=== PATIENT | male | born 1940 | race Caucasian/White ===

== ENCOUNTER 2016-09-07 10:01 | Outpatient (CLI) | payer MEDICARE | END 2016-09-07 10:02 | disposition home or self-care (01) | DX: R22.1 Localized swelling, mass and lump, neck (principal) ==

== ENCOUNTER 2016-09-18 11:10 | Outpatient (CLI) | payer MEDICARE ==
[2016-09-18] MEDS ORDERED: IOPAMIDOL-300 100 ML VIAL IVP ONE (12:03)
--- NOTE | 2016-09-18 16:56 | CT Report ---
CT NECK WITH CONTRAST: 09/18/2016 CLINICAL INDICATION: Palpable abnormality left side. COMPARISON: Ultrasound 09/07/2016. TECHNIQUE: Axial CT images of the neck were obtained 100 mL Isovue-300 intravenously. FINDINGS: The vascular structures enhance normally. There is an air-fluid level in the right maxill radha sinus and patchy mucosal thickening, compatible with acute on chronic sinus disease. The palpabl e abnormality marked with a BB correlates with a homogeneously enhancing nodule arising adjacent to t he inferior aspect of the left parotid gland. This lesion measures 2.2 x 1.2 x 1.2 cm. Additionally , there is a mildly enlarged left submandibular lymph node, measuring 1.3 x 0.9 cm. No definite naso pharyngeal, oropharyngeal, or hypopharyngeal mucosal lesion is identified. The trachea is widely pat ent. Limited evaluation of the lung apices demonstrates emphysema. Osseous structures demonstrate d egenerative changes. IMPRESSION: RELATIVELY HOMOGENEOUS NODULE ARISING IN THE INFERIOR RIGHT PAROTID GLAND, LIKELY REPRES ENTING AN INTRAPAROTID LYMPH NODE. CONSIDER FINE NEEDLE ASPIRATION FOR FURTHER EVALUATION. ALSO, TX LDLY ENLARGED RIGHT SUBMANDIBULAR NODE. In accordance with CT protocol optimization, one or more of the following dose reduction techniques w ere utilized for this exam: automated exposure control, adjustment of mA and/or KV based on patient size, or use of iterative reconstructive technique. JOB #: [id number] EXT JOB #:[id number]
== END 2016-09-18 11:11 | disposition home or self-care (01) ==
LOC: DI 11:10
PROVIDERS: ATTEND Family Medicine
DX: R22.1 Localized swelling, mass and lump, neck (principal); R59.0 Localized enlarged lymph nodes
CPT/HCPCS: 70491; Q9967

== ENCOUNTER 2017-02-15 10:09 | Outpatient (CLI) | payer MEDICARE ==
--- NOTE | 2017-02-15 12:37 | XRAY Report ---
THREE-VIEW RIGHT KNEE: 02/15/2017 CLINICAL INDICATION: Twisted, pain. FINDINGS: AP, lateral, sunrise views of the right knee demonstrate moderate osteoarthritis. A small effusion is present. There is no evidence of acute fracture or dislocation. IMPRESSION: MODERATE OSTEOARTHRITIS, WITH A SMALL EFFUSION. JOB #: [id number] EXT JOB #:[id number]
--- NOTE | 2017-02-15 12:38 | XRAY Report ---
THREE VIEW LEFT FOOT: 02/15/2017 CLINICAL INDICATION: Pain. FINDINGS: AP, lateral, and oblique views of the left foot demonstrate osteoarthritis of the interpha langeal joints. There is no evidence of acute fracture or dislocation. No radiopaque foreign body is seen in the soft tissues. IMPRESSION: MILD OSTEOARTHRITIS. JOB #: [id number] EXT JOB #:[id number]
== END 2017-02-15 10:10 | disposition home or self-care (01) ==
LOC: DI.S 10:09
PROVIDERS: ATTEND Family Medicine
DX: M19.072 Primary osteoarthritis, left ankle and foot (principal); M17.11 Unilateral primary osteoarthritis, right knee; M25.461 Effusion, right knee

== ENCOUNTER 2017-03-05 13:10 | Outpatient (CLI) | payer MEDICARE ==
--- NOTE | 2017-03-05 18:29 | MRI Report ---
EXAM: RIGHT KNEE MRI WITHOUT CONTRAST EXAM DATE: 03/05/2017 01:57 PM. CLINICAL HISTORY: Twisting knee injury months ago, persistent effusion. COMPARISON: Plain x-ray of the knee from 02/15/2017. TECHNIQUE: Multiplanar, multisequence T1-weighted and fluid-sensitive sequences of the knee without c ontrast. Other: None. FINDINGS: Bones: Marrow edema is seen on both sides of the medial compartment. Marginal osteophytosis is seen a t the medial compartment, lateral compartment and the patellofemoral joint. Articular Cartilage: Broad areas of grade 34 chondromalacia on both sides of the medial compartment. Lateral compartment is relatively spared. There is a cartilaginous fissure at the patellar apex. Medial Meniscus: Medial meniscus is partially subluxed out of the joint and there is maceration of th e posterior horn which may also involve the posterior medial meniscal root. Please see series 801 ramana ge 12, series 901 image 24. Lateral Meniscus: The lateral meniscus is intact. Cruciate Ligaments: The anterior and posterior cruciate ligaments are intact. Collateral Ligaments: MCL is bowed medially and somewhat thickened, probably from previous strain or partial-thickness tearing. LCL complex appears intact. Tendons: The quadriceps, patellar, semimembranosus, and popliteus tendons are unremarkable. Musculature: No edema or fatty atrophy. Other: Small effusion. No popliteal cyst. Focal loose body seen in the posterior knee joint immediate ly posterior to the distal PCL, measuring up to 10 mm on series 501 image 15. The medial and lateral retinacula are intact. The subcutaneous tissues and fat pads are unremarkable. IMPRESSION: 1. Marrow edema on both sides of the medial compartment, associated with broad areas of grade 4 chond romalacia. Lateral compartment is relatively spared. Cartilaginous fissure at the patellar apex. Liana inal osteophytosis in all 3 joint compartments. 2. Medial meniscus is partially subluxed out of the joint and there is maceration of the posterior ho rn. There also is probably involvement of the posterior medial meniscal root. Lateral meniscus, cruci ates appear unremarkable. 3. MCL is bowed medially and somewhat thickened, probably from previous injury. No acute injury of th e MCL. LCL is normal. 4. Small joint effusion. There is a 10 mm loose body in the posterior knee joint, immediately posteri or to the distal PCL. [facility] MUSCULOSKELETAL RADIOLOGY SECTION Referring Provider Line: [phone] SITE ID: [id number]
== END 2017-03-05 13:11 | disposition home or self-care (01) ==
LOC: DI 13:10
PROVIDERS: ATTEND Family Medicine
DX: S83.91XA Sprain of unspecified site of right knee, initial encounter (principal); M25.561 Pain in right knee; M25.461 Effusion, right knee; M94.261 Chondromalacia, right knee

== ENCOUNTER 2018-05-22 12:23 | Outpatient (CLI) | payer MEDICARE, OTHER | END 2018-05-22 12:24 | disposition home or self-care (01) | LOC: RT 12:23 | PROVIDERS: ATTEND Internal Medicine Cardiovascular Disease | DX: I25.10 Atherosclerotic heart disease of native coronary artery without angina pectoris (principal) | CPT/HCPCS: 93005 ==

== ENCOUNTER 2018-05-27 08:02 | Outpatient (CLI) | payer MEDICARE, OTHER ==
[2018-05-27 14:20] LABS: ALBUMIN 3.8 g/dL (3.2-5.5); ALBUMIN/GLOBULIN RATIO 1.3 (1.0-2.2); ALKALINE PHOSPHATASE 57 IU/L (42-121); ALT ALANINE AMINOTRANSFERASE 19 IU/L (10-60); AST ASPARTATE AMINOTRANSFERASE 31 IU/L (10-42); BILIRUBIN,TOTAL 0.7 mg/dL (0.2-1.0); BUN - BLOOD UREA NITROGEN 15 mg/dL (6-20); CALCIUM 8.8 mg/dL (8.5-10.3); CARBON DIOXIDE - CO2 28 mmol/L (21-32); CHLORIDE 102 mmol/L (101-111); CHOL/HDL RATIO 2.8 (<5.0); CHOLESTEROL 220 mg/dL; CREATININE 0.7 mg/dL (0.6-1.2); GFR - MDRD 109 (>89); GLUCOSE 96 mg/dL (70-100); HDL CHOLESTEROL 80 mg/dL; LDL CHOLESTEROL,CALCULATED 129 mg/dL; LDL/HDL RATIO 1.6 (<3.6); SODIUM 136 mmol/L (135-145); TOTAL PROTEIN 6.7 g/dL (6.7-8.2); VLDL CHOLESTEROL 11 mg/dL
[2018-05-27 14:53] LABS: THYROID STIMULATING HORMONE 1.73 uIU/mL (0.34-5.60)
[2018-05-27 14:57] LABS: FREE T4 (FREE THYROXINE) 1.03 ng/dL (0.58-1.64)
== END 2018-05-27 08:03 | disposition home or self-care (01) ==
LOC: LAB.F 08:02
PROVIDERS: ATTEND Internal Medicine Cardiovascular Disease
DX: I25.10 Atherosclerotic heart disease of native coronary artery without angina pectoris (principal); I51.7 Cardiomegaly; E78.49 Other hyperlipidemia; I10 Essential (primary) hypertension; R09.89 Other specified symptoms and signs involving the circulatory and respiratory systems
CPT/HCPCS: 36415; 80051; 80053; 80061; 83721; 84439; 84443

== ENCOUNTER 2018-06-02 10:19 | Outpatient (CLI) | payer MEDICARE, OTHER ==
--- NOTE | 2018-06-02 13:10 | Ultrasound Report ---
Reason: CAROTID BRUIT L Procedure Date: 06/02/2018 Accession Number: [id number] / [id number] Procedure: US - Carotid Doppler Complete CPT Code: FULL RESULT: EXAM: BILATERAL CAROTID AND VERTEBRAL ARTERY DUPLEX DOPPLER ULTRASOUND: EXAM DATE: 06/02/2018 12:44 PM CLINICAL HISTORY: Carotid bruit left. COMPARISON: None. TECHNIQUE: Grayscale imaging, color Doppler, and duplex spectral Doppler were used to evaluate the carotid and vertebral arteries bilaterally. Static images were obtained. FINDINGS: There is a scant amount of echogenic atherosclerotic plaque in the right common carotid artery focally at multiple sites with a mixture of hypoechoic and echogenic plaque in the right carotid bulb region, subjectively less than 50%. The right proximal internal carotid artery similarly demonstrates segmental atherosclerotic plaque which usually does not exceed 50% of the lumen. More extensive echogenic atherosclerotic plaque is seen in the left carotid bulb region which also extends to the proximal left internal carotid artery, less than 50%. Normal antegrade flow is present in bilateral vertebral arteries. VELOCITIES (cm/sec): Right CCA Mid: PSV 81.2 cm/sec CCA Dist: PSV 51.5 cm/sec ICA Prox: PSV 77.3 cm/sec, EDV 15.1 cm/sec ICA Mid: PSV 72.8 cm/sec, EDV 26.9 cm/sec ICA Dist: PSV 90.7 cm/sec, EDV 30.8 cm/sec ECA: PSV 85.7 cm/sec Vert: PSV 41.5 cm/sec ICA/CCA: 1.1 Left CCA Mid: PSV 72.8 cm/sec CCA Dist: PSV 61.6 cm/sec ICA Prox: PSV 59.4 cm/sec, EDV 20.7 cm/sec ICA Mid: PSV 66.1 cm/sec, EDV 25.2 cm/sec ICA Dist: PSV 65.5 cm/sec, EDV 24.1 cm/sec ECA: PSV 77.3 cm/sec Vert: PSV 51.5 cm/sec ICA/CCA: 0.9 ICA diameter stenosis: Right: <50% by velocity and <70% by NASCET criteria. Left: <50% by velocity and <70% by NASCET criteria. IMPRESSION: 1. Echogenic focal atherosclerosis of the left greater than right carotid bulbs, visually less than 50% carotid artery plaquing. 2. In the right carotid artery there are no elevated carotid artery velocities to suggest hemodynamically significant stenosis. 3. In the left carotid artery there are no elevated carotid artery velocities to suggest hemodynamically significant stenosis. 4. Normal antegrade flow is present in bilateral vertebral arteries. General Recommendations: Stenosis =50% ICA - Follow-up ultrasound 6-12 months Stenosis <50% ICA - High Risk Patient with plaque - Follow-up ultrasound 1-2 years Normal Study but High Risk Patient - Follow-up ultrasound 3-5 years Management recommendations and diagnostic criteria are based on current IAC endorsed standards in Carotid Artery Stenosis: Grayscale and Doppler Ultrasound Diagnosis. Validated velocity measurements with angiographic measurements and velocity criteria are extrapolated from diameter data as defined by the Society of Radiologists in Ultrasound Consensus Conference Radiology 2003; 229;340-346. [facility]
== END 2018-06-02 10:20 | disposition home or self-care (01) ==
LOC: DI 10:19
PROVIDERS: ATTEND Internal Medicine Cardiovascular Disease
DX: I25.10 Atherosclerotic heart disease of native coronary artery without angina pectoris (principal); I10 Essential (primary) hypertension; R09.89 Other specified symptoms and signs involving the circulatory and respiratory systems; I77.810 Thoracic aortic ectasia; I65.23 Occlusion and stenosis of bilateral carotid arteries
CPT/HCPCS: 93306; 93880

== ENCOUNTER 2018-07-21 07:23 | Outpatient (CLI) | payer MEDICARE, OTHER ==
[2018-07-21 10:39] LABS: ALBUMIN 3.8 g/dL (3.2-5.5); ALBUMIN/GLOBULIN RATIO 1.1 (1.0-2.2); ALKALINE PHOSPHATASE 62 IU/L (42-121); ALT ALANINE AMINOTRANSFERASE 18 IU/L (10-60); AST ASPARTATE AMINOTRANSFERASE 27 IU/L (10-42); BILIRUBIN,TOTAL 0.7 mg/dL (0.2-1.0); BUN - BLOOD UREA NITROGEN 24 mg/dL (6-20); CALCIUM 9.2 mg/dL (8.5-10.3); CARBON DIOXIDE - CO2 30 mmol/L (21-32); CHLORIDE 103 mmol/L (101-111); CHOL/HDL RATIO 2.4 (<5.0); CHOLESTEROL 204 mg/dL; CREATININE 0.6 mg/dL (0.6-1.2); GFR - MDRD 130 (>89); GLUCOSE 97 mg/dL (70-100); HDL CHOLESTEROL 85 mg/dL; LDL CHOLESTEROL,CALCULATED 104 mg/dL; LDL/HDL RATIO 1.2 (<3.6); SODIUM 138 mmol/L (135-145); TOTAL PROTEIN 7.3 g/dL (6.7-8.2); VLDL CHOLESTEROL 15 mg/dL
== END 2018-07-21 07:24 | disposition home or self-care (01) ==
LOC: LAB.F 07:23
PROVIDERS: ATTEND Internal Medicine Cardiovascular Disease
DX: Z79.899 Other long term (current) drug therapy (principal)
CPT/HCPCS: 36415; 80053; 80061; 83721

== ENCOUNTER 2019-05-28 13:39 | Outpatient (CLI) | payer MEDICARE, OTHER ==
--- NOTE | 2019-05-29 09:20 | XRAY Report ---
Reason: PAIN IN RIGHT SHOULDER Procedure Date: 05/28/2019 Accession Number: [id number] / [id number] Procedure: XRS - Shoulder 2 View RT CPT Code: Final Report FULL RESULT: EXAM: RIGHT SHOULDER RADIOGRAPHY EXAM DATE: 05/28/2019 01:52 PM. CLINICAL HISTORY: PAIN IN RIGHT SHOULDER. COMPARISON: 04/06/2011 12:54 PM. TECHNIQUE: 3 views. FINDINGS: Bones: Mild remodeling of the undersurface of the acromion. No fracture or bone lesion. Joints: Mild right shoulder joint space narrowing and osteophyte formation. Superior humeral head subluxation and complete subacromial joint space loss on the Grashey view. Acromioclavicular joint is unremarkable. Soft tissues: The visualized hemithorax is unremarkable. No soft tissue swelling. IMPRESSION: Right shoulder rotator cuff arthropathy. [facility]
== END 2019-05-28 13:40 | disposition home or self-care (01) ==
LOC: DI.S 13:39
PROVIDERS: ATTEND Registered Nurse
DX: M19.011 Primary osteoarthritis, right shoulder (principal)

== ENCOUNTER 2020-04-22 10:52 | Outpatient (CLI) | payer MEDICARE, OTHER ==
[2020-04-22] MEDS ORDERED: IOVERSOL 320 100 ML VIAL IVP ONE (11:37)
--- NOTE | 2020-04-22 13:19 | CT Report ---
PROCEDURE: CHEST W INDICATIONS: MASS OF CHEST WALL CONTRAST: IV CONTRAST: Optiray 320 ml: 100 PO CONTRAST: *NO PO CONTRAST TECHNIQUE: After the administration of intravenous contrast, 5 mm thick sections acquired from the pulmonary api tayler to the posterior costophrenic angles. 7 mm thick coronal MIP reformats were acquired. For radia tion dose reduction, the following was used: automated exposure control, adjustment of mA and/or kV according to patient size. COMPARISON: None. FINDINGS: Image quality: Excellent. Lungs and pleura: Scattered scarring and atelectasis. No acute consolidation. Upper lobe predominant centrilobular emphysema. No pleural effusions or pneumothorax. Central and peripheral airways are pa tent and normal in caliber. Mediastinum: Heart size is normal. Coronary artery calcifications are noted. No pericardial effus ion. No mediastinal or hilar adenopathy by size criteria. Thoracic aorta and central pulmonary roxane alfredo are normal in size. Esophagus is normal in caliber. No hiatal hernia. Bones and chest wall: Biliary marked by the skin fiducial, there is a heterogeneous mass measuring 4 .0 x 2.9 cm on axial image 8/3. This measures approximately 2.8 cm in the cephalocaudad dimension. Th ere is low attenuation centrally raising possibility of necrosis versus partial cystic nature. No suspicious bony lesions. No vertebral body compression fractures. No axillary or supraclavicular adenopathy by size criteria. Thyroid gland contains a sub-5 mm hypoattenuating focus in the right l obe which could be better assessed with ultrasound as clinically necessary. Abdomen: Within the head of the pancreas, there is a rim-enhancing lesion measuring 2.1 x 1.4 cm on i mage 81/3. Hepatic foci statistically representing cysts although technically indeterminate due to small size. IMPRESSION: Large heterogeneous mass, possibly with internal necrosis versus partial cystic nature in the area ma rked by the skin fiducial at the right supraclavicular subcutaneous soft tissues. Recommend surgical consultation and clinical management as soft tissue sarcoma cannot be excluded, versus metastatic les ion or other complex infectious or inflammatory fluid collection. Rim-enhancing lesion within the head of the pancreas, which is indeterminate although suspicious for neoplasm. Further evaluation recommended with dedicated pancreatic protocol MRI Reviewed by: Rivas Reyes MD on 04/22/2020 1:18 PM PDT Approved by: Rivas Reyes MD on 04/22/2020 1:18 PM PDT Station ID: [id number]
== END 2020-04-22 10:53 | disposition home or self-care (01) ==
LOC: DI 10:52
PROVIDERS: ATTEND Family Medicine
DX: R22.2 Localized swelling, mass and lump, trunk (principal)
CPT/HCPCS: 71260; Q9967

== ENCOUNTER 2020-05-25 12:52 | Outpatient (CLI) | payer MEDICARE, OTHER ==
[2020-05-25] MEDS ORDERED: GADOBUTROL 7.5 MMOL/7.5 ML VIAL ONE (13:20)
[2020-05-25] MEDS ORDERED: GADOBUTROL 7.5 MMOL/7.5 ML VIAL IVP ONE (14:48)
--- NOTE | 2020-05-25 16:58 | MRI Report ---
PROCEDURE: Abdomen W/WO INDICATIONS: MASS OF PANCREAS CONTRAST: IV CONTRAST: Gadavist ml: 7 TECHNIQUE: Coronal ultra fast SE, axial 2D spoiled GE in- and [id number]; axial breath-hold T2 fast SE. Dynam ic axial ultra fast GE during the administration of contrast; post-contrast coronal ultra fast GE or 2D spoiled GE with fat saturation from the hepatic dome to the iliac crests. Optional diffusion weig hted imaging and ADC may be performed. COMPARISON: Prior chest CT 04/22/2020. FINDINGS: Image quality: Excellent. Lung bases: No basal pleural effusions. Heart size is normal. Solid organs: Liver and spleen are normal in size and enhancement. Gallbladder appears normal Bili radha system is non dilated. Pancreas is normal in morphology except at the pancreatic head/uncinate p rocess where an enhancing mass lesion can be seen, which does not produce pancreatic or distal common duct dilatation, and measures up to 1.7 cm AP and 1.9 cm transverse. This shows internal enhancement on delayed imaging and on early arterial phase imaging is peripherally enhancing. This is not associ ated with adjacent adenopathy or evidence of infiltrative neoplastic spread into the retroperitoneum. Rather, the mass is centered at the pancreatic parenchyma is slightly deviates the pancreatic neck a nteriorly.. No adrenal nodules. Both kidneys demonstrate normal size and enhancement, without hydro nephrosis. Nodes and vessels: No retroperitoneal or mesenteric adenopathy by size criteria. The inferior vena c haley is normal in size. 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 No aortic dissection or perianeurysmal fibrosis or aneurysm leak is suspected. Bowel and peritoneum: Unenhanced bowel loops are normal in caliber. No free fluid. Bones and soft tissues: No ventral hernias. Bone marrow is normal in overall signal. IMPRESSION: Heterogeneously enhancing mass lesion at the junction of the pancreatic head and uncinate process, me asuring up to 1.7 x 1.9 cm, present on prior CT scanning of the chest from 04/22/2020. This mass has not definitely enlarged over the short interval time from that prior CT scanning. Currently no eviden ce of tumor infiltration into the retroperitoneal fat is identified, no adenopathy is found. The pat tern of enhancement raises a concern that the neoplasm present could represent a neuroendocrine tumor and specialist surgical consultation is recommended. A dedicated high-resolution pancreatic protocol CT scan is recommended utilizing pre- and postcontrast imaging in 3 phases of contrast enhancement, to include water as oral contrast, formatted best resolution in detecting evidence of retroperitoneal /perivascular spread. Reviewed by: Ricardo Rosa MD on 05/25/2020 4:57 PM PST Approved by: Ricardo Rosa MD on 05/25/2020 4:57 PM PST Station ID: [id number]
== END 2020-05-25 12:53 | disposition home or self-care (01) ==
LOC: DI 12:52
PROVIDERS: ATTEND Physician Assistant
DX: K86.89 Other specified diseases of pancreas (principal)
CPT/HCPCS: 36415; 74183; 82565; A9585

== ENCOUNTER 2020-05-25 13:19 | Outpatient (CLI) | payer MEDICARE, OTHER ==
[2020-05-25 13:49] LABS: CREATININE 0.8 mg/dL (0.6-1.2)
== END 2020-05-25 13:20 | disposition home or self-care (01) ==
LOC: LAB 13:19
PROVIDERS: ATTEND Family Medicine
DX: K86.89 Other specified diseases of pancreas (principal)
CPT/HCPCS: 36415; 82565

== ENCOUNTER 2021-12-14 13:32 | Outpatient (CLI) | payer MEDICARE, OTHER ==
--- NOTE | 2021-12-14 15:35 | XRAY Report ---
PROCEDURE: Wrist 2 View BILAT INDICATIONS: DEGENERATIVE JOINT DISEASE INVOLVINE MULTIPLE JOIN TECHNIQUE: 2 views of the wrist were acquired. COMPARISON: None FINDINGS: Bones: No fractures or dislocations. No suspicious bony lesions. Severe bilateral first CMC and tr iscaphe joint osteoarthritis. Mild to moderate bilateral radiocarpal joint osteoarthritis. Accessory ossicle versus chronic right ulnar styloid process avulsion fracture. Prominence of the left scapholu aniket interval. Soft tissues: No suspicious soft tissue calcifications. IMPRESSION: 1. 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 2. [id number] bilateral radiocarpal joint arthritis. 3. Prominence of the left scapholunate interval concerning for scapholunate ligament tear. Recommend MRI of the left wrist for additional evaluation. Reviewed by: Meghana Moreira MD, PhD on 12/14/2021 3:34 PM PDT Approved by: Meghana Moreira MD, PhD on 12/14/2021 3:34 PM PDT Station ID: [id number]
--- NOTE | 2021-12-14 15:37 | XRAY Report ---
PROCEDURE: Hand 2 View BILAT INDICATIONS: DEGENERATIVE JOINT DISEASE INVOLVING MULTIPLE JOIN TECHNIQUE: 2 views of the hand(s) acquired. COMPARISON: None FINDINGS: Bones: No fractures or dislocations. No suspicious bony lesions. Severe bilateral first CMC, trisca phe and second DIP joint osteoarthritis. Moderate bilateral second through fifth MCP joint osteoarthr itis. Moderate, extensive bilateral interphalange joint osteoarthritis. Old left third distal phalang e fracture. No osseous erosions. No periventricular osteopenia. Soft tissues: No suspicious soft tissue calcifications. IMPRESSION: Osteoarthritis as described above. Reviewed by: Meghana Moreira MD, PhD on 12/14/2021 3:36 PM PDT Approved by: Meghana Moreira MD, PhD on 12/14/2021 3:36 PM PDT Station ID: [id number]
[2021-12-14 20:01] LABS: BASOPHILS # (AUTO) 0.1 10^3/uL (0.0-0.1); BASOPHILS % (AUTO) 0.8 %; EOSINOPHILS # (AUTO) 0.6 10^3/uL (0.0-0.7); EOSINOPHILS % (AUTO) 9.2 %; HGB - HEMOGLOBIN 12.8 g/dL (14.0-18.0); LYMPHOCYTES # (AUTO) 1.7 10^3/uL (1.5-3.5); LYMPHOCYTES % (AUTO) 25.8 %; MEAN CORPUSCULAR HEMOGLOBIN 33.4 pg (27.0-31.0); MEAN CORPUSCULAR HGB CONC 32.8 g/dL (32.0-36.0); MEAN CORPUSCULAR VOLUME 101.8 fL (80.0-94.0); MEAN PLATELET VOLUME 9.7 fL (7.4-11.4); MONOCYTES # (AUTO) 0.8 10^3/uL (0.0-1.0); MONOCYTES % (AUTO) 11.6 %; NEUTROPHILS # (AUTO) 3.4 10^3/uL (1.5-6.6); NEUTROPHILS % (AUTO) 52.4 %; PLT - PLATELET COUNT 212 10^3/uL (130-450); RED BLOOD COUNT 3.83 10^6/uL (4.70-6.10); RED CELL DISTRIBUTION WIDTH 13.3 % (12.0-15.0); WHITE BLOOD COUNT 6.4 x10^3/uL (4.8-10.8)
[2021-12-14 20:36] LABS: ALBUMIN 3.5 g/dL (3.2-5.5); ALKALINE PHOSPHATASE 62 IU/L (42-121); ALT ALANINE AMINOTRANSFERASE 19 IU/L (10-60); AST ASPARTATE AMINOTRANSFERASE 32 IU/L (10-42); BILIRUBIN,TOTAL 0.5 mg/dL (0.2-1.0); BUN - BLOOD UREA NITROGEN 30 mg/dL (6-20); CALCIUM 8.7 mg/dL (8.5-10.3); CARBON DIOXIDE - CO2 27 mmol/L (21-32); CHLORIDE 102 mmol/L (101-111); CHOL/HDL RATIO 2.4 (<5.0); CHOLESTEROL 188 mg/dL; GFR - MDRD 72 (>89); GLUCOSE 100 mg/dL (70-100); HDL CHOLESTEROL 80 mg/dL; LDL CHOLESTEROL,CALCULATED 82 mg/dL; POTASSIUM 4.4 mmol/L (3.5-5.0); SODIUM 134 mmol/L (135-145); TOTAL PROTEIN 6.9 g/dL (6.7-8.2); TRIGLYCERIDES 130 mg/dL; VLDL CHOLESTEROL 26 mg/dL
[2021-12-19 00:07] LABS: HCV AB 0.2 s/co ratio (0.0-0.9)
== END 2021-12-14 13:33 | disposition home or self-care (01) ==
LOC: DI.S 13:32
PROVIDERS: ATTEND Nurse Practitioner Family
DX: M18.0 Bilateral primary osteoarthritis of first carpometacarpal joints (principal); M19.031 Primary osteoarthritis, right wrist; M19.032 Primary osteoarthritis, left wrist; M19.041 Primary osteoarthritis, right hand; M19.042 Primary osteoarthritis, left hand; I10 Essential (primary) hypertension; E78.5 Hyperlipidemia, unspecified; Z11.59 Encounter for screening for other viral diseases; R39.12 Poor urinary stream
CPT/HCPCS: 36415; 80053; 80061; 83721; 84153; 84443; 85025; 86803

== ENCOUNTER 2021-12-22 12:59 | Outpatient (CLI) | payer MEDICARE, OTHER ==
[2021-12-22 14:51] LABS: BASOPHILS # (AUTO) 0.1 10^3/uL (0.0-0.1); BASOPHILS % (AUTO) 0.8 %; EOSINOPHILS # (AUTO) 0.5 10^3/uL (0.0-0.7); EOSINOPHILS % (AUTO) 7.8 %; HCT - HEMATOCRIT 40.9 % (42.0-52.0); HGB - HEMOGLOBIN 13.5 g/dL (14.0-18.0); LYMPHOCYTES # (AUTO) 1.5 10^3/uL (1.5-3.5); LYMPHOCYTES % (AUTO) 22.3 %; MEAN CORPUSCULAR HEMOGLOBIN 33.3 pg (27.0-31.0); MEAN PLATELET VOLUME 9.9 fL (7.4-11.4); MONOCYTES # (AUTO) 0.8 10^3/uL (0.0-1.0); NEUTROPHILS # (AUTO) 3.8 10^3/uL (1.5-6.6); NEUTROPHILS % (AUTO) 56.8 %; PLT - PLATELET COUNT 213 10^3/uL (130-450); RED BLOOD COUNT 4.05 10^6/uL (4.70-6.10); WHITE BLOOD COUNT 6.6 x10^3/uL (4.8-10.8)
== END 2021-12-22 13:00 | disposition home or self-care (01) ==
LOC: LAB.S 12:59
PROVIDERS: ATTEND Nurse Practitioner Family
DX: D53.9 Nutritional anemia, unspecified (principal)
CPT/HCPCS: 36415; 82607; 82746; 82977; 85025

== ENCOUNTER 2022-07-24 07:57 | Outpatient (CLI) | payer MEDICARE, OTHER ==
[2022-07-24 14:53] LABS: THYROID STIMULATING HORMONE 1.82 uIU/mL (0.34-5.60)
== END 2022-07-24 07:58 | disposition home or self-care (01) ==
LOC: LAB.S 07:57
PROVIDERS: ATTEND Internal Medicine
DX: I48.0 Paroxysmal atrial fibrillation (principal)
CPT/HCPCS: 36415; 84443

== ENCOUNTER 2022-08-22 08:59 | Outpatient (CLI) | payer MEDICARE, OTHER | END 2022-08-22 09:00 | disposition home or self-care (01) | LOC: DI 08:59 | PROVIDERS: ATTEND Internal Medicine Cardiovascular Disease | DX: I48.0 Paroxysmal atrial fibrillation (principal); I77.810 Thoracic aortic ectasia; I07.1 Rheumatic tricuspid insufficiency; Z95.0 Presence of cardiac pacemaker | CPT/HCPCS: 93306 ==

== ENCOUNTER 2023-09-05 07:00 | Outpatient (CLI) | payer MEDICARE, OTHER ==
--- NOTE | 2023-09-05 17:09 | XRAY Report ---
PROCEDURE: Chest 2V INDICATIONS: SHORTNESS OF BREATH/CHEST CONGESTION TECHNIQUE: 2 views of the chest were acquired. COMPARISON: CT chest dated 04/22/2020. FINDINGS: Surgical changes and devices: Pacemaker. Lungs and pleura: No pleural effusions or pneumothorax. Mild chronic interstitial pulmonary fibrosis . No focal pulmonary infiltrate. No pleural fluid. Small nodular densities seen on the chest CT are n ot identified on plain films. Mediastinum: Mediastinal contours appear normal. Heart size is normal. Bones and chest wall: No suspicious bony lesions. Overlying soft tissues appear unremarkable. IMPRESSION: Mild chronic interstitial pulmonary fibrosis. No acute pulmonary process noted. Reviewed by: Guerrero Mendez MD on 09/05/2023 5:07 PM PST Approved by: Guerrero Mendez MD on 09/05/2023 5:07 PM PST Station ID: [id number]
== END 2023-09-05 23:59 | disposition home or self-care (01) ==
LOC: DI.S 07:00
PROVIDERS: ATTEND Physician Assistant Medical
DX: J84.10 Pulmonary fibrosis, unspecified (principal); R09.81 Nasal congestion

== ENCOUNTER 2023-09-05 08:00 | Outpatient (CLI) | payer MEDICARE, OTHER | END 2023-09-05 08:01 | disposition home or self-care (01) | LOC: LAB.S 08:00 | PROVIDERS: ATTEND Physician Assistant Medical | DX: Z53.9 Procedure and treatment not carried out, unspecified reason (principal) ==

== ENCOUNTER 2023-09-27 08:39 | Outpatient (CLI) | payer MEDICARE, OTHER ==
[2023-09-27] MEDS ORDERED: iohexoL-300 100 ML VIAL ONE (09:22)
[2023-09-27] MEDS: iohexoL-300 100 ML VIAL IVP ONE (10:59)
--- NOTE | 2023-09-27 12:20 | CT Report ---
PROCEDURE: Soft Tissue Neck W INDICATIONS: WARTHINS TUMOR SALIVARY GLAND, MASS OF PANCREAS CONTRAST: 100ml omni 300 TECHNIQUE: After the administration of intravenous contrast, 3.0 mm axial sections acquired from the sella to th e aortic arch. Additional oblique axial 3.0 mm sections acquired through the pharynx. 3 mm thick co eliane reformats were generated. For radiation dose reduction, the following was used: automated exp osure control, adjustment of mA and/or kV according to patient size. COMPARISON: CT chest 04/22/2020, CT soft tissue neck 09/18/2016. FINDINGS: Image quality: Excellent. Lymph nodes: No enlarged lymph nodes seen throughout the neck. Vessels: Visualized vasculature appears patent. Atherosclerotic vascular calcifications. Neck spaces: The oropharynx, nasopharynx, and pharynx demonstrate no mucosal lesions. The vocal cor ds, false vocal cords, pyriform sinuses, epiglottis, vallecula, and tongue base all appear normal. E xtramucosal spaces appear unremarkable. Partially visualized left chest wall pacemaker. Glands: Heterogeneous lesion within the left parotid gland measuring approximately 2.1 x 1.8 x 5.4 c m (AP by TV by CC). Liver does partially evaluated by dental streak artifact. Heterogeneous appearanc e of the right parotid gland with areas of enhancement and more cystic components. There is a solid e nhancing nodule along the superior aspect of the right parotid gland measuring up to 9 mm. The subman dibular glands appear normal. Subcentimeter thyroid nodules which don't require follow-up. Miscellaneous: Visualized brain and orbits appear normal. Small bilateral pleural effusions. Emphyse matous changes are noted within the lung apices. Interstitial septal thickening, groundglass is prese nt. Right upper lobe subpleural nodule measuring 7 mm (), similar compared to 04/22/2020. Superfi cial soft tissues appear normal. Bones: No suspicious bony lesions. Multilevel degenerative changes of the spine. Visualized sinuses and mastoids appear unremarkable. IMPRESSION: 1.Heterogeneous lesion within the left parotid gland deep to the marker as described above which is i ncreased compared to prior examination 2016. 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 2.Heterogeneous appearance of the right parotid gland with cystic and enhancing foci. In addition the re is a more solid enhancing focus along the superior aspect of the right parotid gland. Findings may represent additional primary parotid neoplasms. The more solid nodule may represent an intraparotid lymph node. Consider fine-needle aspiration as clinically indicated. 3.Small bilateral pleural effusions. Interlobar septal thickening and mild groundglass, may represent pulmonary edema. Reviewed by: Louis Collins MD on 09/27/2023 12:19 PM PDT Approved by: Louis Collins MD on 09/27/2023 12:19 PM PDT Station ID: [id number]
--- NOTE | 2023-09-27 12:36 | Ultrasound Report ---
PROCEDURE: Abdomen Limited INDICATIONS: WARTHINS TUMOR SALIVARY GLAND, MASS OF PANCREAS TECHNIQUE: Real-time focused scanning was performed of the abdomen, with image documentation. COMPARISONS: MRI of the abdomen with and without contrast dated 05/25/2020 FINDINGS: Liver: Liver is normal in size and homogeneous in echotexture. Gallbladder: Unremarkable. Biliary ducts: Intrahepatic bile ducts are non-dilated. Extrahepatic bile duct caliber measures 4.8 mm. Normal is 6-7 mm or less in diameter, or 10 mm or less post-cholecystectomy. Pancreas: On the previous MRI, an enhancing pancreatic head/uncinate process mass was noted measurin g 1.7 x 1.9 cm. On the current ultrasound, an apparent mass in this location appears to measure 1.8 x 1.9 x 2.2 cm. Right kidney: Normal in size and echotexture. Right kidney measures 11.7 cm long. No hydronephrosis or nephrolithiasis. No solid masses. No complex renal cystic lesions which require follow-up. Aorta: Visualized aorta is normal in caliber at less than 3 cm. IVC: Intrahepatic inferior vena cava is patent. Miscellaneous: No free abdominal fluid. IMPRESSION: 1. 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 By MRI greater t joe 3 years ago, it measured 1.7 x 1.9 cm. Ultrasound is not the ideal way to identify pancreatic mas ses. A probable mass appears to be increased in size compared to the previous study, measuring 1.8 x 1.9 x 2.2 cm. Comment: Consider repeat pancreas protocol MRI with and without contrast for a possibly enlarging mayes creatic mass. Reviewed by: Guerrero Mendez MD on 09/27/2023 12:35 PM PDT Approved by: Guerrero Mendez MD on 09/27/2023 12:35 PM PDT Station ID: [id number]
== END 2023-09-27 08:40 | disposition home or self-care (01) ==
LOC: DI 08:39
PROVIDERS: ATTEND Nurse Practitioner Acute Care
DX: D11.7 Benign neoplasm of other major salivary glands (principal); K86.89 Other specified diseases of pancreas; J90 Pleural effusion, not elsewhere classified
CPT/HCPCS: 70491; 76705; Q9967

== ENCOUNTER 2023-12-25 10:27 | Outpatient (CLI) | payer MEDICARE, OTHER | END 2023-12-25 10:28 | disposition home or self-care (01) | LOC: DI 10:27 | PROVIDERS: ATTEND Internal Medicine Cardiovascular Disease | DX: I50.20 Unspecified systolic (congestive) heart failure (principal); I07.1 Rheumatic tricuspid insufficiency; Z95.0 Presence of cardiac pacemaker | CPT/HCPCS: 93307 ==